=== PATIENT | female | born 1960 | race Caucasian/White ===

== ENCOUNTER 2018-06-27 14:44 | Emergency (ER) | payer BC ==
[2018-06-27 14:57] VITALS: BP 173/96
--- NOTE | 2018-06-27 15:24 | EDM.PDOC ---
ED HPI GENERAL MEDICAL PROBLEM - General Chief Complaint: Upper Extremity Injury/Pain Stated Complaint: RT HAD, FINGERS TURNING WHITEISH MANCINI Time Seen by Provider: 06/27/18 15:15 Source of Information: Reports: Patient History Limitations: Reports: No Limitations - History of Present Illness INITIAL COMMENTS - FREE TEXT/NARRATIVE: This 57 yo female patient reports to the ED from the [facility]. The patient was advised to come directly to the ED due to an artery problem. The patient reports that she has noticed that her fingers have been turning white at different intervals over the past couple of months. Onset: Today Duration: Intermittent Location: Reports: Upper Extremity, Right (hand) Quality: Reports: Other Severity: Moderate Improves with: Reports: None Worsens with: Reports: None Associated Symptoms: Reports: No Other Symptoms - Related Data Allergies Allergy/AdvReac Type Severity Reaction Status Date / Time codeine Allergy Itching Verified 05/30/16 09:37 Home Meds: Home Meds Multivitamin [Gummi Bear Multivitamin] 1 each PO DAILY 06/27/18 [History] Past Medical History - Past Health History Medical/Surgical History: Denies Medical/Surgical History Genitourinary History: Reports: Renal Calculus Social & Family History - Family History Family Medical History: Noncontributory - Tobacco Use Smoking Status *Q: Never Smoker Second Hand Smoke Exposure: No - Recreational Drug Use Recreational Drug Use: No - Living Situation & Occupation Living situation: Reports: , with Spouse Occupation: Employed Review of Systems - Review of Systems Review Of Systems: ROS reveals no pertinent complaints other than HPI. ED EXAM, GENERAL - Physical Exam Exam: See Below Exam Limited By: No Limitations General Appearance: Alert, WD/WN, Moderate Distress Eye Exam: Bilateral Eye: EOMI, Normal Inspection, PERRL Ears: Normal External Exam, Normal Canal, Hearing Grossly Normal, Normal TMs Nose: Normal Inspection, Normal Mucosa, No Blood Throat/Mouth: Normal Inspection, Normal Lips, Normal Teeth, Normal Gums, Normal Oropharynx, Normal Voice, No Airway Compromise Head: Atraumatic, Normocephalic Neck: Normal Inspection, Supple, Non-Tender, Full Range of Motion Respiratory/Chest: No Respiratory Distress, Lungs Clear, Normal Breath Sounds, No Accessory Muscle Use, Chest Non-Tender Cardiovascular: Normal Peripheral Pulses, Regular Rate, Rhythm, No Edema, No Gallop, No JVD, No Murmur, No Rub GI/Abdominal: Normal Bowel Sounds, Soft, Non-Tender, No Organomegaly, No Distention, No Abnormal Bruit, No Mass (Female) Exam: Deferred Rectal (Female) Exam: Deferred Back Exam: Normal Inspection, Full Range of Motion, NT Extremities: Normal Inspection, Normal Range of Motion, Non-Tender, Normal Capillary Refill, No Pedal Edema Neurological: Alert, Oriented, CN II-XII Intact, Normal Cognition, Normal Gait, Normal Reflexes, No Motor/Sensory Deficits Psychiatric: Normal Affect, Normal Mood Skin Exam: Warm, Dry, Intact, Normal Color, No Rash Lymphatic: No Adenopathy Course - Vital Signs Last Recorded V/S: Last Vital Signs Temp 36.7 C 06/27/18 14:54 Pulse 73 06/27/18 14:54 Resp 18 06/27/18 14:54 BP 173/96 H 06/27/18 14:54 Pulse Ox 100 06/27/18 14:54 Departure - Departure Time of Disposition: 15:20 Disposition: Home, Self-Care 01 Condition: Fair Clinical Impression: Raynauds disease Qualifiers: Raynaud?s-associated gangrene presence: without gangrene Qualified Code(s): I73.00 - Raynaud's syndrome without gangrene - Discharge Information *PRESCRIPTION DRUG MONITORING PROGRAM REVIEWED*: Not Applicable *COPY OF PRESCRIPTION DRUG MONITORING REPORT IN PATIENT DANILO: Not Applicable Instructions: Raynaud Phenomenon Forms: ED Department Discharge Care Plan Goals: The patient was advised of the examination results during the visit. The patient was informed about the cause of her symptoms and preventative actions that can be taken to avoid further complications or problems. If the patient has any additional symptoms or concerns, the patient was encouraged to follow- up with her primary care facility or return to the emergency department.
== END 2018-06-27 15:28 | disposition home or self-care (01) ==
LOC: DL.ED 14:44
DX: I73.00 Raynaud's syndrome without gangrene (principal); Z88.5 Allergy status to narcotic agent
CPT/HCPCS: 99283

== ENCOUNTER 2025-06-29 14:41 | Emergency (ER) | payer MEDICARE, BC ==
[2025-06-29] MEDS: Fluorescein 1 MG Ophth Strip EYELF ONE (15:02)
[2025-06-29 15:46] VITALS: BP 154/104; PULSE 74
== END 2025-06-29 17:04 | disposition home or self-care (01) ==
LOC: DL.ED 14:41
DX: S05.02XA Injury of conjunctiva and corneal abrasion without foreign body, left eye, initial encounter (principal); Z88.5 Allergy status to narcotic agent; W44.8XXA Other foreign body entering into or through a natural orifice, initial encounter; Y93.89 Activity, other specified
CPT/HCPCS: 70450; 99283; A9270